=== PATIENT | female | born 1980 | race Caucasian/White ===

== ENCOUNTER 2020-06-09 15:30 | Outpatient (RCR) | payer BC, SELFPAY ==
--- NOTE | 2020-04-19 16:10 | PTOPEVAL ---
PHYSICAL THERAPY EVALUATION AND PLAN OF CARE 04-19-20 Thank you for referring Adela Dawson to [facility] for the diagnosis of lymphedema. She is scheduled to be seen for therapy? 1 x/week for 7 weeks. Due to her work schedule, she is only able to come in for treatment once/week on Friday. Please review, sign, date and return this plan of care CARMEN. I agree with and certify that the following plan of care is medically necessary. Referring Physician Date Attending Provider: Dr Epi Luu *PT Outpatient Evaluation Start: 04/19/20 09:13 Document 04/19/20 15:05 LIZ (Rec: 04/19/20 16:10 LIZ [id number]) Outpatient Past Medical History Past Medical History Source of Past Medical History Patient Neurological History Hx Neurological Disorders No Significant History Cardiovascular History Hx Coronary Stent Yes: July 2019 Hx Hypertension Yes: meds Respiratory History Hx Other Respiratory Disorders Yes: SOB with walking short distances- dr following Gastrointestinal History Hx Gastrointestinal Disorders No Significant History Genitourinary History Hx Genitourinary Disorders No Significant History Musculoskeletal History Hx Orthopedic Surgery Yes: cervical fusion 2014 Endocrine History Hx Hypothyroidism Yes: meds HEENT History Hx HEENT Disorders No Significant History Evaluation Information Problem Diagnosis lymphedema therapy Prior Level of Function Activity Level (Last 3 Months) Occupation alcoholic counselor- working [employer] Hand Dominance Right Activity of Daily Living Ability Independent Indoor/Home Mobility Independent Community Mobility Independent Stairs Ability Independent Functional Cognition (Planning, Shopping Independent , Taking Medications) Cooking Yes Cleaning Yes Laundry Yes Shopping Yes Driving Yes Pain Assessment Timing of Pain Assessment Timing of Pain Assessment Assessment Self Report Self Report Pain Level 0 Pain Score Pain Score 0: Self Report Upper Extremity Range of Motion General Upper Extremity Range of Motion Gross Upper Extremity Range of Motion standing L UE: shoulder Comments flexion, abduction, IR and ER are WNL and without pain reported; elbow, wrist and hand WNL; in supine: L shoulder ER slightly less with hands behind head and stretching elbow to the mat;
--- NOTE | 2020-06-09 16:04 | PTOPEVAL ---
PHYSCIAL THERAPY DISCHARGE 06-09-20 Refer to the clinical summary below for her status, compared to the initial evaluation. The goals were achieved, except the measurement of the edema at lateral trunk pocket of fluid. Thank you for referring Adela Alma Delia Dawson to [facility].? Please review, sign, date and return this discharge CARMEN. I agree with and certify that the following plan of care is medically necessary. Referring Physician Date Attending Provider: Dr. Epi Luu *PT Outpatient Discharge Document 06/09/20 15:20 LIZ (Rec: 06/09/20 16:03 LIZ [email or web address]) Subjective Information Adela reports: can wear a bra Query Text:As Reported By Patient/ if she has the swell pad on; Family starting to have more sensation in upper is doing her self massage without any problems; is working and doing all her home things without any problems; agrees to discharge from PT services. Pain Assessment Timing of Pain Assessment Timing of Pain Assessment Assessment Self Report Self Report Pain Level 0 Pain Score Pain Score 0: Self Report Upper Extremity Range of Motion General Upper Extremity Range of Motion Gross Upper Extremity Range of Motion L shoulder active flexion, Comments abduction, IR and ER ranges are WNL, without any pain reported; supine stretch of ER with hands behind her head, R =L with elbows hitting pillow; Lymphedema Therapy Manual Lymph Drainage Location Left Breast,Left Anterior Lower Quadrant,Left Anterior Upper Quadrant,Left Posterior Lower Quadrant,Left Posterior Upper Quadrant,Right Anterior Lower Quadrant,Right Anterior Upper Quadrant,Right Posterior Lower Quadrant,Right Posterior Upper Quadrant Decongestive Clearing Axilla Node Stimulation, Clavicular Node Stimulation, Clear Trunk,Inquinal Node Stimulation,Intestinal Node Stimulation,Proximal>Distal> Proximal Area of Focus L lateral trunk pocker of fluid and axillary incision Patient Positions Sidelying,Supine Manual Lymph Drainage Treatment Adhesions,Fibrosis Limitations
== END 2020-06-12 14:37 | disposition home or self-care (01) ==
LOC: ANHPT 15:30
PROVIDERS: PCP Family Medicine
DX: C77.3 Secondary and unspecified malignant neoplasm of axilla and upper limb lymph nodes (principal)
CPT/HCPCS: 97140; 97161

== ENCOUNTER 2021-07-09 10:17 | Emergency (ER) | payer BC, SELFPAY ==
[2021-07-09] VITALS (27 sets, daily range): BP systolic 109–132; BP diastolic 47–84; PULSE 81–107; RESP 16–25; O2SAT 94–100
--- NOTE | ~2021-07-09 | CT_ITS ---
EXAMINATION: CT brain wo con DATE: 07/09/2021 10:52 INDICATION: Seizure. Unresponsive. Melanoma. TECHNIQUE: Computed tomography (CT) of the head was performed without intravenous contrast. The mA wa s adjusted according to patient size. Iterative reconstruction technique was employed. The dose-lengt h product was 605.33 mGy-cm. COMPARISON: None FINDINGS: There is chronic encephalomalacia in right frontoparietal region. There is no intracranial hemorrhage, acute infarction, or abnormal intracranial mass lesion. The ventricles are normal in size . The orbits are normal. There is mild mucosal thickening in the paranasal sinuses. The mastoid air c ells are normal. IMPRESSION: 1. Chronic encephalomalacia in right frontoparietal region. Reviewed, dictated and finalized at location A.
--- NOTE | 2021-07-09 10:36 | ECG_ITS ---
Measurements Intervals [place] Rate: 105 P: 25 MD: 174 QRS: 6 QRSD: 106 T: 15 QT: 351 QTc: 466 Interpretive Statements SINUS TACHYCARDIA Electronically Signed On 07-09-2021 15:50:59 CDT by Delfin Daniels M.D.
[2021-07-09] MEDS: levETIRAcetam 1000MG/NACL100ML 1,000 MG/100 ML BAG 400 MG IVPB (11:03)
[2021-07-09 11:49] LABS: Basophils Percent Auto 0.2 % (0.2-1.2); Eosinophils Absolute Auto 0.1 K/mm3 (0-0.3); Eosinophils Percent Auto 0.9 % (0-4.4); Hemoglobin 11.6 g/dL (12.0-15.0); Immature Granulocyte Absolute 0.04 K/mm3 (0.00-0.031); Immature Granulocyte Percent A 0.4 % (0-0.5); Lymphocytes Absolute Auto 1.29 K/mm3 (0.9-3.2); Lymphocytes Percent Auto 14.2 % (18.3-44.2); Mean Corpuscular HGB Conc 32.2 g/dl (32-36); Mean Corpuscular Hemoglobin 29.5 pg (26-34); Mean Corpuscular Volume 91.6 fl (80-100); Mean Platelet Volume 8.7 fl (7.4-10.4); Monocytes Absolute Auto 0.3 K/mm3 (0.1-0.6); Monocytes Percent Auto 3.6 % (2.6-8.5); Neutrophils Absolute Auto 7.4 K/mm3 (1.3-6.7); Neutrophils Percent Auto 80.7 % (45.5-73.1); Platelet Count Result 322 k/mm3 (150-375); Red Blood Count 3.93 M/mm3 (4.2-5.4); Red Cell Distribution Width 14.6 % (11.5-14.5); White Blood Count 9.1 K/mm3 (4.5-10.0)
[2021-07-09 11:58] LABS: Alanine Aminotransferase 103 U/L (4-35); Albumin Level 3.4 g/dL (3.5-5.1); Alkaline Phosphatase 84 U/L (38-126); Anion Gap 6 mmol/L (8-16); Aspartate Amino Transferase 51 U/L (14-36); Bilirubin,Total 0.3 mg/dL (0.2-1.3); Blood Urea Nitrogen 14 mg/dL (7-17); Calcium 8.1 mg/dL (8.4-10.2); Carbon Dioxide 25 mmol/L (22-30); Chloride 108 mmol/L (98-107); Estimated CRCL calculation 127 ml/min; Estimated Glomerular Filt Rate > 60; Glucose 102 mg/dL (65-110); Potassium 3.8 mmol/L (3.4-5.0); Sodium 139 mmol/L (137-145)
--- NOTE | 2021-07-09 14:18 | ED.SEIZURE ---
HPI - Seizure General Chief Complaint: Seizure Stated Complaint: seizures, unresponsive Time Seen by Provider: 07/09/21 10:24 Source: patient, family and EMS Mode of arrival: EMS History of Present Illness HPI Narrative: 40-year-old female brought in by EMS secondary seizure. Patient was at work at the time and had a witnessed seizure. She was unresponsive afterwards. On EMS arrival patient was still unresponsive. She did have agonal respiration maintaining oxygen saturation was acceptable. 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 Patient was given Versed 4 mg IV and transported. Patient had supplemental bagging given to her in route with a nasal cannula in. On arrival to the emergency room patient is noted to have snoring respirations and breathing on her own to maintain a good O2 saturation. Completely unresponsive. 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 She is undergone radiation treatment on one large lesion as well as undergoing chemo. Repeat MRI scan done recently shows the large lesion has reduced in size but she now has 2 new lesions in her brain. Had an episode several months ago with a questionable seizure they put her on Keppra which she is taking 500 mg twice a day. She had no witnessed seizure since that time. She is scheduled to undergo gamma knife treatment in the next week or 2. Related Data Allergies Allergy/AdvReac Type Severity Reaction Status Date / Time No Known Allergies Allergy Unverified 09/24/18 06:02 Review of Systems Review of Systems: CONSTITUTIONAL: Denies fever, chills, or sweats. EYES: Denies visual changes, redness, or discharge. ENT: Denies rhinorrhea, congestion, sore throat, or otalgia. CARDIOVASCULAR: Denies chest pain, palpitations, or edema. RESPIRATORY: Denies cough or dyspnea. GASTROINTESTINAL: Denies abdominal pain, nausea, vomiting, or diarrhea. GENITOURINARY: Denies dysuria or hematuria. SKIN: Denies rash or itching. MUSCULOSKELETAL: Denies back pain, joint pain, or myalgia. NEUROLOGIC: Patient is experiencing a headache at this time. She denies any focal weakness or numbness. PSYCHIATRIC: Denies anxiety or depression. [facility] Past Medical History Medical History (Updated 07/09/21 @ 18:45 by George Bergeron DO) Generalized seizure Melanoma Social History Social History (Updated 07/09/21 @ 18:45 by George Bergeron DO) Smoking status: Never smoker Exam Narrative: APPEARANCE: Initially patient was completely obtunded with snoring respirations and not responsive. Head normocephalic and atraumatic. EYES: PERRLA/EOMI, conjunctivae very clear. NOSE: Normal with no drainage EARS:TMS clear Mirela Langford, with good light reflex. THROAT: Pharynx clear, no exudate. NECK: Supple. No adenopathy, no masses. RESPIRATORY: Airway patent, respirations nonlabored. Clear to auscultation bilaterally, no rales, rhonchi, wheezing. CARDIOVASCULAR: Regular rate and rhythm without murmurs, rubs, or gallops. ABDOMINAL: Soft, nontender, nondistended, no hepatosplenomegaly Musculoskeletal: Moves all extremities. Strength/ROM intact, No edema, No calf tenderness. NEURO: Alert. Cranial nerves II through XII intact. Normal gait. Good coordination. Nonfocal examination. SKIN:: Warm, dry. Normal Color PSYCHIATRIC: Normal affect/mood, normal interaction Course Vital Signs Vital signs: Vital Signs Pulse Rate 107 H 07/09/21 10:15 Respiratory Rate 22 H 07/09/21 10:15 Blood Pressure 123/64 07/09/21 10:15 Pulse Oximetry 97 07/09/21 10:15 Pulse Rate 84 07/09/21 15:24 Respiratory Rate 16 07/09/21 15:24 Blood Pressure 132/84 07/09/21 15:24 Pulse Oximetry 99 07/09/21 15:24 MDM - Seizure MDM Narrative Medical decision making narrative: On presentation patient was in obvious postictal state with snoring respirations. Able to maintain an airway and O2 saturat
[2021-07-09] MEDS: oxyCODONE/ACETAMINOPHEN (*CRX) 5-325 MG TABLET 1 TABLET PO (14:26)
[2021-07-09] MEDS: HEPARIN SODIUM LOCK FLUSH 500 UNITS/5 ML VIAL (15:22)
== END 2021-07-09 15:25 | disposition home or self-care (01) ==
PROVIDERS: Emergency Provider Emergency Medicine; PCP Family Medicine
DX: G40.89 Other seizures (principal); C43.9 Malignant melanoma of skin, unspecified; C79.31 Secondary malignant neoplasm of brain
CPT/HCPCS: 36415; 70450; 80053; 85025; 93005; 96365; 96375; 99284; A9270; J1642; J1953